=== PATIENT | female | born 1935 | race Two or more races ===

== ENCOUNTER 2024-03-17 16:58 | Inpatient (IN) | payer OTHER, MEDICARE ==
[~2024-03-17] VITALS: Ht 170.2 cm; Wt 53.1 kg
[2024-03-17] MEDS: MORPHINE SULFATE 2 MG/ML INJ (NOT FOR IM USE) IV ONE (18:00)
[2024-03-17] MEDS ORDERED: VANCOMYCIN 1G PREMIX 200 ML IV ONE (18:00)
[2024-03-17] MEDS: ACETAMINOPHEN 325MG TABLET PO ONE (18:00)
[2024-03-17 18:45] LABS: HEMATOCRIT. 29.1 % (36.0-48.0); HEMOGLOBIN. 9.8 g/dL (12.0-16.0); MEAN CORPUSCULAR HEMOGLOBIN 32.1 pg (28.0-32.0); MEAN CORPUSCULAR HGB CONC 33.8 g/dL (31.0-37.0); MEAN CORPUSCULAR VOLUME 94.8 fL (81.0-99.0); MEAN PLATELET VOLUME 9.6 fl (7.4-10.4); PLATELET 202 x1000/uL (130-400); RED BLOOD CELL COUNT 3.07 mill/uL (4.2-5.4); RED CELL DISTRIBUTION WIDTH 14.5 % (11.6-14.6); WHITE BLOOD COUNT 10.3 x1000/uL (4.5-11.0)
[2024-03-17 18:46] LABS: DIFFERENTIAL COMMENT 1
[2024-03-17] MEDS: SODIUM CHLORIDE 0.9% 1000ML BAG (SEPSIS BOLUS) IV ONE (18:46)
[2024-03-17 18:48] LABS: CARBON DIOXIDE 26 mEq/L (21-32); CHLORIDE 106 mEq/L (98-107); POTASSIUM 4.1 mEq/L (3.5-5.1); SODIUM 138 mEq/L (136-145)
[2024-03-17 18:49] LABS: CALCIUM 9.5 mg/dL (8.7-10.4)
[2024-03-17 18:53] LABS: INR 1.1; PROTHROMBIN TIME 12.4 sec (9.6-11.0); URIC ACID 5.9 mg/dL (3.1-7.8)
[2024-03-17 18:54] LABS: CREATININE 1.2 mg/dL (0.6-1.0); GLUCOSE 101 mg/dL (70-105); UREA NITROGEN BLOOD 28 mg/dL (9-23)
[2024-03-17 18:55] LABS: TROPONIN I HIGH SENSITIVITY 21 ng/L (3.0-34)
[2024-03-17 19:01] LABS: CLARITY URINE CLEAR (CLEAR); COLOR URINE YELLOW (YELLOW); GLUCOSE URINE NEGATIVE (NEGATIVE); KETONES URINE NEGATIVE (NEGATIVE); LEUKOCYTE ESTERASE URINE NEGATIVE (NEGATIVE); NITRITE URINE NEGATIVE (NEGATIVE); OCCULT BLOOD URINE NEGATIVE (NEGATIVE); PH URINE 6.5 (4.5-8.0); PROTEIN URINE TRACE (NEGATIVE); SPECIFIC GRAVITY URINE 1.016 (1.005-1.030); UROBILINOGEN URINE 0.2 E.U./dL (0.2-1.0)
[2024-03-17 19:21] LABS: BACTERIA URINE TRACE; SQUAMOUS EPITHELIAL CELL URINE FEW /lpf (RARE/1+)
[2024-03-17 19:22] LABS: RBC URINE 0-2 /hpf (0-2); WBC URINE 0-2 /hpf (0-2)
[2024-03-17] MEDS: PIPERACILLIN/TAZO 3.375G/50ML 50 ML IV ONE (19:24)
[2024-03-17 19:28] LABS: PLATELET ESTIMATE NORMAL
[2024-03-17] MEDS: VANCOMYCIN 1GM PMX (XELLIA) 200 ML IV NR (20:03)
[2024-03-17 22:00] VITALS: BP 110/65; PULSE 79; RESP 18; TEMP 38.3364; TEMP 38.364; O2SAT 93
[2024-03-17] MEDS ORDERED: LORAZEPAM 2MG/ML INJ IV PRN (22:15)
[2024-03-17] MEDS ORDERED: DEXTROSE 50% WATER 50ML SYRINGE IV PRN (22:15)
[2024-03-17] MEDS ORDERED: IPRATROPIUM/ALBUTEROL 0.5-3(2.5)MG/3ML NEB HHN PRN (22:15)
[2024-03-17] MEDS ORDERED: CLONIDINE 0.1MG TABLET PO PRN (22:15)
[2024-03-17] MEDS ORDERED: ONDANSETRON HCL 4MG/2ML INJ IV PRN (22:15)
[2024-03-17] MEDS ORDERED: FURO20TA4 PO (22:22)
[2024-03-17] MEDS ORDERED: LISI40TA13 PO (22:22)
[2024-03-17] MEDS ORDERED: HYDR25TA78 PO (22:22)
[2024-03-17] MEDS ORDERED: AMLO5TAB88 PO (22:22)
[2024-03-17] MEDS ORDERED: DONE5TAB33 PO (22:22)
[2024-03-17] MEDS ORDERED: ATEN50TA PO (22:22)
[2024-03-17] MEDS: SODIUM CHLORIDE 0.9% 500 ML IV ONE (23:23)
[2024-03-17] MEDS: ACETAMINOPHEN 325MG TABLET PO PRN (23:28)
[2024-03-17] MEDS ORDERED: HALOPERIDOL 5MG TABLET PO NR (23:30)
[2024-03-17] MEDS ORDERED: HALOPERIDOL 5MG TABLET PO PRN (23:45)
[2024-03-18] VITALS: BP 137/55; PULSE 78; RESP 18; TEMP 38.0586; O2SAT 95
[2024-03-18 04:00] VITALS: BP 138/63; PULSE 65; RESP 18; TEMP 36.33624; O2SAT 95
[2024-03-18] MEDS: BLOOD SUGAR DIAGNOSTIC STRIP TEST SCH (07:10)
[2024-03-18] MEDS: INSULIN LISPRO 100 UNITS/ML SUBCUT SCH (07:53)
[2024-03-18 08:00] VITALS: BP 144/65; PULSE 69; RESP 19; TEMP 36.50292; O2SAT 93
[2024-03-18] MEDS ORDERED: CEFEPIME 1GM IN DEXT 5% 50ML IV SCH (08:30)
[2024-03-18 08:51] LABS: BASOPHILS % 0.7 % (0.0-2.0); EOSINOPHILS % 0.1 % (0.0-5.0); HEMATOCRIT. 27.8 % (36.0-48.0); HEMOGLOBIN. 9.5 g/dL (12.0-16.0); LYMPHOCYTES % 8.9 % (20.0-50.0); MEAN CORPUSCULAR HEMOGLOBIN 32.7 pg (28.0-32.0); MEAN CORPUSCULAR VOLUME 96.1 fL (81.0-99.0); MEAN PLATELET VOLUME 10.1 fl (7.4-10.4); MONOCYTES % 14.2 % (2.0-8.0); NEUTROPHILS % 76.1 % (40.0-76.0); PLATELET 180 x1000/uL (130-400); RED BLOOD CELL COUNT 2.89 mill/uL (4.2-5.4); RED CELL DISTRIBUTION WIDTH 14.6 % (11.6-14.6); WHITE BLOOD COUNT 8.4 x1000/uL (4.5-11.0)
[2024-03-18] MEDS: ATENOLOL 50 MG TABLET PO SCH (09:06)
[2024-03-18] MEDS: AMLODIPINE 5MG TABLET PO SCH (09:06)
[2024-03-18] MEDS: DONEPEZIL HCL 5MG TABLET PO SCH (09:07)
[2024-03-18] MEDS: FUROSEMIDE 20MG TABLET PO SCH (09:07)
[2024-03-18] MEDS: LISINOPRIL 40MG TABLET PO SCH (09:07)
[2024-03-18] MEDS: ENOXAPARIN 30MG/0.3ML SYR SUBCUT SCH (09:09)
[2024-03-18 09:44] LABS: POTASSIUM 4.1 mEq/L (3.5-5.1); T4 FREE 0.98 ng/dL (0.89-1.76); THYROID STIMULATING HORMONE 1.81 uIU/mL (0.55-4.78)
[2024-03-18 09:50] LABS: CREATININE 1.2 mg/dL (0.6-1.0)
[2024-03-18 12:00] VITALS: BP 140/62; PULSE 63; RESP 18; TEMP 36.61404; O2SAT 96
[2024-03-18] MEDS: CEFEPIME 1GM/50ML 50 ML IV SCH (12:03)
[2024-03-18] MEDS ORDERED: VANCOMYCIN 500MG PREMIX 100 ML IV SCH (14:00)
[2024-03-18 16:00] VITALS: BP 140/58; PULSE 70; RESP 18; TEMP 36.72516; O2SAT 92
[2024-03-18 16:04] VITALS: BP 140/68; PULSE 74; TEMP 98.1; O2SAT 98
[2024-03-18] MEDS ORDERED: VANCOMYCIN 750 MG in DEXT 5% WATER 100 ML IV SCH (21:00)
[2024-03-18] MEDS ORDERED: MELATONIN 3MG TABLET PO SCH (21:00)
== END 2024-03-18 16:51 | disposition short-term general hospital (02) | DRG 603 ==
LOC: ER 16:58 → 7WST 20:59 → EDBEDREQ 21:03
PROVIDERS: ADMIT Internal Medicine; ATTEND Internal Medicine
DX: L03.114 Cellulitis of left upper limb (principal); N17.9 Acute kidney failure, unspecified; E11.9 Type 2 diabetes mellitus without complications; I10 Essential (primary) hypertension; F03.90 Unspecified dementia, unspecified severity, without behavioral disturbance, psychotic disturbance, mood disturbance, and anxiety; Z79.899 Other long term (current) drug therapy
CPT/HCPCS: 36415; 71045; 73130; 80048; 81003; 82962; 83036; 83605; 84145; 84439; 84443; 84484; 84550; 85025; 93005; 99285; J0692; J1650; J1815; J2543; J3370; J7030; J7060